=== PATIENT | male | born 1965 | race Caucasian/White ===

== ENCOUNTER → 2016-09-04 | Outpatient (CLI) | payer BC ==
--- NOTE | 2016-09-04 19:48 | DIAGNOSTIC IMAGING REPORT ---
CHEST 2 VIEWS ROUTINE HISTORY: Atypical chest pain. Cough. COMPARISON: None. FINDINGS: No pleural effusions. No pneumothorax. The heart is normal in size. The left lung is clear. Faint ill-defined right perihilar opacity. This measures 3.7 cm. IMPRESSION: A faint 3.7 cm right perihilar opacity. This may represent a pneumonia. However, follow-up chest CT is recommended following a course of antibiotic therapy to exclude a pulmonary lesion. Electronically signed by: Leonardo Chen M.D. 09/04/2016 7:46 PM Dictated Date/Time: 09/04/2016 7:44 PM
== END | disposition home or self-care (01) ==
LOC: C.RAD 19:05
PROVIDERS: ATTEND Family Medicine
DX: R05 Cough (principal)

== ENCOUNTER → 2016-10-25 | Outpatient (CLI) | payer BC ==
--- NOTE | 2016-10-25 11:34 | DIAGNOSTIC IMAGING REPORT ---
CHEST CT WITHOUT CONTRAST CT DOSE: 555.22 mGycm HISTORY: Cough pneumonia TECHNIQUE: Multiaxial CT images of the chest were performed without contrast. COMPARISON: Chest series dated 09/04/2016 FINDINGS: Lungs are considered clear. Right perihilar density on the prior study has resolved. There is no nodular pathology. There are no regions of consolidation. There is no significant hilar or mediastinal adenopathy. There is slight prominence of the root of aorta 3.8 cm. Instill note is made of a least one small gallstone within the gallbladder lumen. IMPRESSION: 1. Negative CT chest. 2. Infiltrate right perihilar region produces described has resolved. 3. Mild prominence through the aorta at 3.8 cm Electronically signed by: Keny Braxton M.D. 10/25/2016 11:33 AM Dictated Date/Time: 10/25/2016 11:28 AM
== END | disposition home or self-care (01) ==
LOC: C.CTS 11:07
PROVIDERS: ATTEND Family Medicine
DX: J18.9 Pneumonia, unspecified organism (principal); J98.4 Other disorders of lung

== ENCOUNTER → 2017-07-13 | Outpatient (CLI) | payer BC ==
[~2017-07-13] MED LIST: MULT-506 PO
--- NOTE | 2017-07-13 14:29 | DIAGNOSTIC IMAGING REPORT ---
CHEST 2 VIEWS ROUTINE HISTORY: 52 years-old Male CHEST PAIN acute atypical chest pain COMPARISON: Chest radiograph 09/04/2016, chest CT 10/25/2016 TECHNIQUE: PA and lateral views of the chest FINDINGS: Cardiomediastinal and hilar silhouettes are within normal limits. No pneumothorax, pleural effusion, focal airspace consolidation or overt pulmonary edema. Bones are grossly intact. IMPRESSION: No acute cardiopulmonary process. The above report was generated using voice recognition software. It may contain grammatical, syntax or spelling errors. Electronically signed by: Josh Lobato M.D. 07/13/2017 2:28 PM Dictated Date/Time: 07/13/2017 2:25 PM
== END | disposition home or self-care (01) ==
LOC: C.RAD1850 13:56
PROVIDERS: ATTEND Family Medicine
DX: R07.9 Chest pain, unspecified (principal)

== ENCOUNTER 2017-07-17 20:12 | Emergency (ER) | payer BC ==
[~2017-07-17] VITALS: Ht 175.3 cm; Wt 97.8 kg
[2017-07-17 20:15] VITALS: TEMP 37; Ht 175.3 cm; Wt 97.8 kg
[2017-07-17] MEDS ORDERED: NITROGLYCERIN 0.4 MG SL PER TAB CHARGE SL STA (20:30)
[2017-07-17] MEDS ORDERED: ASPIRIN 324 MG CHEW PO STA (20:30)
[2017-07-17] MEDS ORDERED: MULT-506 PO (20:32)
[2017-07-17 20:54] LABS: HEMATOCRIT 41.4 % (42-52); MEAN CELL VOLUME 87.9 fL (80-100); MEAN CORPUSCULAR HEMOGLOBIN 30.6 pg (25-34); MEAN CORPUSCULAR HGB CONC 34.8 g/dl (32-36); MEAN PLATELET VOLUME 10.3 fL (7.4-10.4); PLATELET COUNT 216 K/uL (130-400); RED BLOOD COUNT 4.71 M/uL (4.7-6.1); WHITE BLOOD COUNT 6.63 K/uL (4.8-10.8)
[2017-07-17 20:56] VITALS: O2SAT 99
[2017-07-17 21:06] LABS: PROTHROMBIN TIME (PATIENT) 10.2 SECONDS (9.0-12.0)
[2017-07-17 21:21] LABS: ALT/SGPT 35 U/L (12-78); BLOOD UREA NITROGEN 16 mg/dl (7-18); BUN/CREATININE RATIO 13.3 (10-20); CALCIUM 8.8 mg/dl (8.5-10.1); CARBON DIOXIDE 29 mmol/L (21-32); CHLORIDE 104 mmol/L (98-107); GLUCOSE 109 mg/dl (70-99); POTASSIUM 3.9 mmol/L (3.5-5.1); SODIUM 140 mmol/L (136-145)
[2017-07-17 21:26] LABS: ALKALINE PHOSPHATASE 66 U/L (45-117); AST/SGOT 27 U/L (15-37); CKMB/CK RATIO 0.5 (0-3.0)
[2017-07-17 21:46] LABS: BASO ABS # 0.06 K/uL (0-0.2); BASOPHIL % 0.9 % (0-2); COMPLETE YES; EOSINOPHIL % 0.9 %; LYMPH ABS # 1.62 K/uL (1.2-3.4); LYMPHOCYTE % 24.5 %; NEUTROPHILS % 33.6 %; VARIANT LYM ABS # 2.48 K/uL; VARIANT LYMPHOCYTE % 37.4 %
--- NOTE | 2017-07-17 21:52 | DIAGNOSTIC IMAGING REPORT ---
CHEST 2 VIEWS ROUTINE CLINICAL HISTORY: Chest pain. COMPARISON STUDY: Chest radiograph July 13, 2017. FINDINGS: Lung volumes are normal. There is no consolidation or evidence of pulmonary edema. Cardiomediastinal silhouette is stable. No pneumothorax or pleural effusion is present. IMPRESSION: No acute cardiopulmonary findings. Electronically signed by: Dariel Holloway M.D. 07/17/2017 9:50 PM Dictated Date/Time: 07/17/2017 9:46 PM
--- NOTE | 2017-07-17 22:49 | EMERGENCY ROOM VISIT NOTE ---
History First contact with patient: 20:18 Chief Complaint: CHEST PAIN Stated Complaint: CHEST PAIN History of Present Illness The patient is a 52 year old male who presents to the Emergency Room with complaints of chest pain that started 2-1/2 hours ago. The patient describes it as an achiness in the substernal region. He states it is radiating to the right today. He rates it at a 5 out of 10. He also states that today he has some slight jaw pain with the chest pain. He denies any shortness of breath, numbness and tingling in his extremities. The patient states that he has been getting chest pains intermittently for several weeks. He states they are similar to the one he has today. They can last up to several hours. They do not get worse with exercise. They do not resolve with rest. The patient denies any recent stressors in his life. The patient states initially he was getting them approximately once a day but now he is getting the pains every other day. He has been seen by his PCP for his chest pains. He went there on Sunday but at the time he was not having chest pain. They did cardiac enzymes and EKG which were normal. He also had a chest x-ray done which was normal. He is scheduled for a stress test on August 01. The patient states that he was instructed this evening to come to the emergency room by his PCP since he was having recurrent pain tonight and was not scheduled for the stress test until August 01. The patient denies any history of hypertension or hyperlipidemia. The patient smoked cigarettes for 15 years he quit 10 years ago. There is no family history of early cardiac disease. Review of Systems 10 system review was performed and was negative unless stated otherwise history of present illness. Past Medical/Surgical History No significant past medical history Social History Smoking Status: Former Smoker Smokeless Tobacco Use: No Alcohol Use: occasionally Drug Use: none Marital Status: Housing Status: lives with family Occupation Status: employed Current/Historical Medications Scheduled Multivitamin (Multivitamin), 1 TAB PO DAILY Physical Exam Vital Signs Date Time Temp Pulse Resp B/P (MAP) Pulse Ox O2 Delivery O2 Flow Rate FiO2 07/17/17 21:08 128/85 07/17/17 20:56 99 Room Air 07/17/17 20:56 68 18 152/95 98 Room Air 07/17/17 20:48 67 07/17/17 20:15 37.0 72 16 173/100 99 Room Air Physical Exam GENERAL: 52-year-old white male appears in no acute distress. MENTAL Status: Alert and oriented 3. EYES: PERRLA. EOMs intact. NECK: Supple, no lymphadenopathy noted. No carotid bruits noted. LUNGS: Clear auscultation without wheezes rales or rhonchi. CARDIAC: Regular rate and rhythm without murmur. Pulses is full and equal throughout. ABDOMEN: Positive bowel sounds all 4 quadrants. Soft, nontender to palpation without organomegaly or masses. LOWER EXTREMITIES: No cyanosis or edema noted. Calves are nontender. Medical Decision & Procedures ER Provider Diagnostic Interpretation: CHEST 2 VIEWS ROUTINE CLINICAL HISTORY: Chest pain. COMPARISON STUDY: Chest radiograph July 13, 2017. FINDINGS: Lung volumes are normal. There is no consolidation or evidence of pulmonary edema. Cardiomediastinal silhouette is stable. No pneumothorax or pleural effusion is present. IMPRESSION: No acute cardiopulmonary findings. Electronically signed by: Dariel Holloway M.D. 07/17/2017 9:50 PM Dictated Date/Time: 07/17/2017 9:46 PM Laboratory Results 07/17/17 20:44 Red Blood Count 4.71, Mean Corpuscular Volume 87.9, Mean Corpuscular Hemoglobin 30.6, Mean Corpuscular Hemoglobin Concent 34.8, Mean Platelet Volume 10.3 07/17/17 20:44 Test 07/17/17 20:44 07/17/17 22:27 White Blood Count 6.63 K/uL (4.8-10.8) Red Blood Count 4.71 M/uL (4.7-6.1) Hemoglobin 14.4 g/dL (14.0-18.0) Hematocrit 41.4 % (42-52) Mean Corpuscular Volume 87.9 fL (80-100) Mean Corpuscular Hemoglobin 30.6 pg (25-34) Mean Corpuscular Hemoglobin Concent 34.8 g/dl (32-36) Platelet Count 216 K/uL (130-400) Mean Platelet Volume 10.3 fL (7.4-10.4) RDW Standard Deviation 45.3 fL (36.4-46.3) RDW Coefficient of Variation 14.0 % (11.5-14.5) Neutrophils % (Manual) 33.6 % Lymphocytes % (Manual) 24.5 % Variant Lymphocytes % (manual) 37.4 % Monocytes % (Manual) 2.7 % Eosinophils % (Manual) 0.9 % Basophils % (Manual) 0.9 % (0-2) Neutrophils # (Manual) 2.23 K/uL (1.4-6.5) Total Absolute Neutrophils 2.23 K/uL (1.4-6.5) Lymphocytes # (Manual) 1.62 K/uL (1.2-3.4) Absolute Variant Lymphocytes 2.48 K/uL Total Absolute Lymphocytes 4.10 K/uL (1.2-3.4) Monocytes # (Manual) 0.18 K/uL (0.11-0.59) Eosinophils # (Manual) 0.06 K/uL (0-0.5) Basophils # (Manual) 0.06 K/uL (0-0.2) Red Blood Cell Morphology Unremarkable Prothrombin Time 10.2 SECONDS (9.0-12.0) Prothromb Time International Ratio 1.0 (0.9-1.1) Activated Partial Thromboplast Time 26.4 SECONDS (21.0-31.0) Partial Thromboplastin Ratio 1.0 Anion Gap 6.0 mmol/L (3-11) Est Creatinine Clear Calc Drug Dose 82.1 ml/min Estimated GFR () 79.5 Estimated GFR (Non- 68.6 BUN/Creatinine Ratio 13.3 (10-20) Calcium Level 8.8 mg/dl (8.5-10.1) Total Bilirubin 0.4 mg/dl (0.2-1) Direct Bilirubin 0.1 mg/dl (0-0.2) Aspartate Amino Transf (AST/SGOT) 27 U/L (15-37) Alanine Aminotransferase (ALT/SGPT) 35 U/L (12-78) Alkaline Phosphatase 66 U/L (45-117) Total Creatine Kinase 192 U/L (39-308) Creatine Kinase MB 1.0 ng/ml (0.5-3.6) Creatine Kinase MB Ratio 0.5 (0-3.0) Troponin I < 0.015 ng/ml (0-0.045) Pro-B-Type Natriuretic Peptide 27 pg/ml (0-900) Total Protein 7.6 gm/dl (6.4-8.2) Albumin 4.1 gm/dl (3.4-5.0) Lipase 163 U/L (73-393) Bedside Troponin I < 0.030 ng/ml (0-0.045) Medications Administered Medications (Trade) Dose Ordered Sig/Phani Route Start Time Stop Time Status Last Admin Dose Admin Aspirin (Aspirin Chew) 324 mg NOW STAT PO 07/17/17 20:30 07/17/17 20:33 DC 07/17/17 20:53 324 MG Nitroglycerin (Nitrostat Tab) 0.4 mg NOW STAT SL 07/17/17 20:30 07/17/17 20:33 DC 07/17/17 20:53 0.4 MG ECG Indication: chest pain Rhythm: normal sinus Findings: no acute ischemic change ED Course The patient was evaluated. The patient's EMR medication list were reviewed. Patient's chest x-ray from Sunday was negative. IV access was obtained. The patient was placed on a monitor and continuous pulse ox. CBC and differential, renal profile, CK-MB, coags, troponin, BNP was ordered. LFTs and lipase levels were ordered. Chest x-ray was ordered and interpreted by the radiologist as above without any acute findings.. EKG was ordered and interpreted as above without any acute findings. The patient was given 324 mg of chewable aspirin. He was given nitroglycerin 0.4 mg sublingual without any change in his pain. Labs are all reviewed and were unremarkable. Troponin 2 were negative. The patient was informed of all findings. The patient was discharged home in stable condition. Medical Decision Differential diagnosis include angina, costochondritis, pneumonia, GERD, acute NH, muscular strain Blood Pressure Screening Patient's blood pressure: Normal blood pressure Impression Primary Impression: Chest pain Departure Information Dispostion Home / Self-Care Condition GOOD Referrals Delvin Polanco M.D. (PCP) Forms Call Back Authorization, HOME CARE DOCUMENTATION FORM, IMPORTANT VISIT INFORMATION Patient Instructions Chest Pain - [facility], [facility] Additional Instructions Keep scheduled stress test for August 01. If you experience any severe chest pain, shortness of breath, severe headache return to ER immediately. Problem Qualifiers Primary Impression: Chest pain Chest pain type: unspecified Qualified Codes: R07.9 - Chest pain, unspecified
[2017-07-17 23:01] VITALS: BP 151/81; PULSE 71; O2SAT 97
== END 2017-07-17 23:01 | disposition home or self-care (01) ==
LOC: C.EDB 20:13 → C.EDC 23:01
DX: R07.9 Chest pain, unspecified (principal); Z87.891 Personal history of nicotine dependence